=== PATIENT | female | born 1990 | race American Indian/Alaskan Native ===

== ENCOUNTER 2016-06-07 19:58 | Emergency (ER) | payer SELFPAY ==
[2016-06-07 20:07] VITALS: BP 123/81
[2016-06-07] MEDS ORDERED: TYLENOL PO ONE (21:21)
--- NOTE | 2016-06-07 21:22 | Emergency Department Report ---
Chief Complaint: Abdominal Pain Stated Complaint: PAINFUL TO URINATE/PELVIC PAIN Time Seen by Provider: 06/07/16 21:16 - HPI History of Present Illness: [address] -[place] female comes in for pelvic pain and pain to urinate 1 week progressively getting worse with now nausea. Patient does report that she had her cycle and had tissue-like clots and clots. Complains of sore throat. Cough nausea no vomiting denies any fever or chills - Exam Vital Signs: Vital Signs 06/07/16 06/07/16 20:06 20:09 Temperature 97.7 F 97.7 F Pulse Rate 76 76 Respiratory 18 18 Rate Blood Pressure 123/81 Blood Pressure 123/81 [Right] O2 Sat by Pulse 100 100 Oximetry Physical Exam: Alert and oriented 3 cardiovascular S1-S2 regular rate and rhythm respiratory clear to his bilateral abdomen soft some tenderness to the right and left lower quadrant pain. Bowels sounds within normal limits is no distention MSE screening note: Focused history and physical exam performed. Due to findings the following was ordered: CBC BMP rapid strep antigen ordered UA hCG Tylenol or patient be evaluated in main ER ED Disposition for MSE Condition: Stable Instructions: Abdominal Pain (ED)
[2016-06-07 22:07] LABS: Anion Gap 20 mmol/L; BUN/Creatinine Ratio 14.28; Blood Urea Nitrogen 10 mg/dL (7-17); Calcium 8.9 mg/dL (8.4-10.2); Carbon Dioxide 24 mmol/L (22-30); Chloride 99.4 mmol/L (98-107); Glucose 78 mg/dL (65-100); Sodium 139 mmol/L (137-145)
[2016-06-07 22:08] LABS: Hemoglobin 12.9 gm/dl (10.1-14.3); Mean Corpuscular HGB Conc 34 % (30-34); Mean Corpuscular Hemoglobin 27 pg (28-32); Mean Corpuscular Volume 80 fl (79-97); Platelet Count 337 K/mm3 (140-440); Red Blood Count 4.78 M/mm3 (3.65-5.03); Red Cell Distribution Width 14.5 % (13.2-15.2); White Blood Count 14.9 K/mm3 (4.5-11.0)
[2016-06-07 23:00] LABS: Bilirubin,Urine NEG (Negative); Blood,Urine NEG (Negative); Ketones,Urine TR mg/dL (Negative); Leukocyte Esterase,Urine NEG (Negative); Mucus,Urine 2+ /HPF; Nitrite,Urine NEG (Negative); Protein,Urine <15 mg/dL mg/dL (Negative); WBC,Urine < 1.0 /HPF (0.0-6.0)
== END 2016-06-08 01:00 | disposition left against medical advice (07) ==
LOC: ED 19:58
DX: R10.2 Pelvic and perineal pain (principal); R10.32 Left lower quadrant pain; R30.0 Dysuria; R11.0 Nausea; Z53.21 Procedure and treatment not carried out due to patient leaving prior to being seen by health care provider
CPT/HCPCS: 36415; 80048; 81001; 81025; 85027; 87116; 87430

== ENCOUNTER 2017-11-01 12:30 | Emergency (ER) | payer OTHER ==
[2017-11-01 14:42] LABS: Bacteria,Urine 1+ /HPF (Negative); Bilirubin,Urine NEG (Negative); Blood,Urine NEG (Negative); Color,Urine Yellow (Yellow); Mucus,Urine FEW /HPF; Protein,Urine <15 mg/dL mg/dL (Negative)
[2017-11-01 14:45] LABS: HCG Qualitative,Urine Negative (Negative)
--- NOTE | 2017-11-01 15:58 | Emergency Department Report ---
ED Back Pain/Injury HPI - General Chief Complaint: Back Pain/Injury Stated Complaint: LOWER BACK PAIN/WEAK Time Seen by Provider: 11/01/17 15:19 Source: patient Mode of arrival: Ambulatory Limitations: No Limitations - History of Present Illness Initial Comments: This is a 27-year-old -[place] female presents with low back pain with vaginal discharge and fatigue for 1 week. Patient reports last menstrual period 10/12/2017. Patient states daughter was sick last week with viral or bacterial infection and placed on antibiotics. She is now starting to have similar symptoms. Patient states she had a fever of 100.4 with chills and nausea at home. She started taking Tylenol which will drop temperature but temperature returns. Patient states she is keeping her sister's children for the summer, they came down October 12 and one of the children had hands foot and mouth disease 3 weeks ago. Patient reports vaginal discharge has foul odor and dark brown color. States discharge is more than usual. She admits to chronic low back pain but not sure if discharge is related to back pain. Denies chest pain, shortness of breath, body aches, sore throat, vomiting, diarrhea, frequency, urgency, and dysuria. MD Complaint: back pain Onset/Timin -: week(s) Similar Symptoms Previously: No Place: home Radiation: none Severity: mild Severity scale (0 -10): 3 Quality: sharp Consistency: intermittent Improves With: none Worsens With: none Context: unknown Associated Symptoms: cough, fever/chills, nausea/vomiting (nausea without vomiting). denies: confusion, weakness, chest pain, numbness, difficulty walking, difficulty urinating, diaphoresis, incontinence, constipation, headaches, abdominal pain, loss of appetite, malaise, rash, seizure, shortness of breath, syncope Treatments Prior to Arrival: acetaminophen - Related Data Previous Rx's Medication Instructions Recorded Last Taken Type Ibuprofen [Motrin 600 MG tab] 600 mg PO Q8H PRN #30 tablet 03/06/15 Unknown Rx Nitrofurantoin [facility] 100 mg PO Q12HR 10 Days capsule 03/06/15 Unknown Rx [Macrobid CAP] Phenazopyridine [Pyridium] 200 mg PO BID 3 Days tab 03/06/15 Unknown Rx metroNIDAZOLE [Flagyl TAB] 500 mg PO Q12HR 10 Days tab 03/06/15 Unknown Rx Benzonatate [Tessalon Perle] 100 mg PO TID PRN #20 capsule 11/01/17 Unknown Rx Fluticasone [Flonase] 1 spray NS QDAY #1 bottle 11/01/17 Unknown Rx metroNIDAZOLE [Metronidazole] 500 mg PO BID 7 Days #14 tablet 11/01/17 Unknown Rx Allergies Allergy/AdvReac Type Severity Reaction Status Date / Time No Known Allergies Allergy Verified 06/07/16 20:14 ED Review of Systems ROS: Stated complaint: LOWER BACK PAIN/WEAK Other details as noted in HPI Constitutional: denies: chills, fever Respiratory: cough. denies: shortness of breath, wheezing Cardiovascular: denies: chest pain, palpitations, syncope Gastrointestinal: nausea. denies: abdominal pain, vomiting, diarrhea, constipation, hematemesis, melena, hematochezia Genitourinary: denies: urgency, dysuria, frequency, hematuria, discharge Musculoskeletal: back pain (bilateral low back pain ). denies: joint swelling, arthralgia Skin: denies: rash, lesions Neurological: denies: headache, weakness, paresthesias, vertigo Psychiatric: denies: anxiety, depression ED Back Pain Physical Exam - Exam General: Vital signs noted. No distress. Alert and acting appropriately. Back/Abdomen: No Abdominal Tenderness, No Perithoracic Tenderness, No Perilumbar Tenderness, No Sacroiliac Tenderness, No Flank Tenderness, No Straight Leg Raise Pain Neuro: Yes Normal Sensation, Yes Normal DTR's, Yes Normal Gait, No Motor Weakness ED Course Vital Signs 11/01/17 12:57 Temperature 98.6 F Pulse Rate 85 Respiratory 18 Rate Blood Pressure 123/80 O2 Sat by Pulse 100 Oximetry Ed Back Pain Tests - Tests Tests: Normal ED Medical Decision Making - Medical Decision Making 27 y.o. female that presents with URI symptoms and vaginal discharge. Patient examined by me and stable. No distress noted. Vitals normal. Obtain urinalysis , urine hCG, wet prep seen a pelvic exam. Urinalysis and urine test is unremarkable. Wet prep is positive for clue cells, negative Trichomonas and yeast. Start metronidazole for bacterial vaginitis, Flonase and benzonatate for upper respiratory infection. Reviewed results with patient. Discharged home stable. Encouraged to do supportive care for URI. Follow up with Primary Care Provider in 2-3 days. Critical care attestation.: If time is entered above; I have spent that time in minutes in the direct care of this critically ill patient, excluding procedure time. ED Disposition Clinical Impression: Bacterial vaginitis, Viral syndrome Upper respiratory infection Qualifiers: URI type: acute nasopharyngitis (common cold) Qualified Code(s): J00 - Acute nasopharyngitis [common cold] Disposition: TO HOME OR SELFCARE Is pt being admited?: No Does the pt Need Aspirin: No Condition: Stable Instructions: Bacterial Vaginosis (ED), Upper Respiratory Infection (ED) Additional Instructions: Avoid drinking alcohol while taking antibiotics and for 24 hours after completion. Continue safe sexual intercourse. Increase fluid intake and rest. Wash hands frequently. Continue taking tylenol or ibuprofen to control fever. F/U with Primary Care Provider. Return to ER if fever, SOB, or difficulty breathing after 48 hours of supportive care. Prescriptions: Benzonatate [Tessalon Perle] 100 mg PO TID PRN #20 capsule PRN Reason: Cough Fluticasone [Flonase] 1 spray NS QDAY #1 bottle metroNIDAZOLE [Metronidazole] 500 mg PO BID 7 Days #14 tablet Referrals: [facility] [Outside] - 3-5 Days [facility] [Outside] - 3-5 Days [facility] [place] [Outside] - 3-5 Days Forms: STI Treatment and Prevention Time of Disposition: 17:23 Print Language: MAORI ED Female EXAM - General Limitations: No Limitations Female exam: Positive: other (malodorous thick white discharge, no cervical tenderness). Negative: vaginal laceration, tissue present in vagina, herpetic lesions, vulvar erythema, vulvar tenderness, foreign body Back exam: normal inspection, full ROM. denies: CVA tenderness (R), CVA tenderness (L) Neurological exam: Positive: alert, altered, normal gait Psychiatric exam: Positive: normal affect, normal mood
[2017-11-01 17:42] VITALS: BP 136/72
== END 2017-11-01 17:41 | disposition home or self-care (01) ==
LOC: ED 12:30
DX: N76.0 Acute vaginitis (principal); B34.9 Viral infection, unspecified; M54.5 Low back pain; J00 Acute nasopharyngitis [common cold]
CPT/HCPCS: 81001; 81025; 87210; 99284

== ENCOUNTER 2020-01-24 03:41 | Emergency (ER) | payer MEDICAID ==
[2020-01-24 03:49] VITALS: BP 135/89
== END 2020-01-24 07:35 | disposition left against medical advice (07) ==
LOC: ED 03:41
DX: L02.415 Cutaneous abscess of right lower limb (principal)